=== PATIENT | male | born 1965 | race Caucasian/White ===

== ENCOUNTER 2020-08-09 00:25 | Emergency (ER) | payer OTHER ==
[~2020-08-09 00:25] MED LIST: ATENOLOL50 MG PO; CLARITIN10 M2 PO; COLACE PO; DOXYCYCLINE HY100 MG PO; FISH OIL 1,0001 EACH PO; FLONASE 0.05% N16 GM; HYDROCHLOROTHIA25 MG PO; MULTIVITAMINS1 EAC1 PO; NORCO 7.5-3251 EACH PO
[2020-08-09] MEDS ORDERED: IBUPROFEN600 MG PO (02:43)
[2020-08-09] MEDS ORDERED: GABAPENTIN300 MG PO (02:43)
[2020-08-09] MEDS ORDERED: HYDROCODON-ACE1 EAC4 PO (02:43)
== END 2020-08-09 02:50 | disposition home or self-care (01) ==
LOC: ER1 00:25
DX: B02.9 Zoster without complications (principal); I10 Essential (primary) hypertension
CPT/HCPCS: 99283

== ENCOUNTER 2020-10-30 07:48 | Emergency (ER) | payer OTHER ==
[~2020-10-30 07:48] MED LIST changes: +GABAPENTIN300 MG PO; +HYDROCODON-ACE1 EAC4 PO; +IBUPROFEN600 MG PO
[2020-10-30 13:00] LABS: HEMOGLOBIN 15.3 gm/dl (14.0-17.5); RED BLOOD COUNT 4.68 M/UL (4.20-5.50); WHITE BLOOD COUNT 8.6 K/UL (4.5-11.0)
[2020-10-30 13:23] LABS: BUN/CREATININE RATIO 15 (0-10)
[2020-10-30] MEDS ORDERED: DECADRON6 MG PO (15:20)
[2020-10-30] MEDS ORDERED: MUCINEX DM ER1 EAC1 PO (15:23)
== END 2020-10-30 16:18 | disposition home or self-care (01) ==
LOC: ER1 07:48
PROVIDERS: Physician Assistant
DX: U07.1 COVID-19 (principal); I10 Essential (primary) hypertension
CPT/HCPCS: 36600; 71045; 80053; 82803; 85025; 99283

== ENCOUNTER 2021-10-16 16:24 | Emergency (ER) | payer OTHER ==
[~2021-10-16 16:24] MED LIST changes: +DECADRON6 MG PO; +MUCINEX DM ER1 EAC1 PO
[2021-10-16 17:38] LABS: HEMOGLOBIN 15.9 gm/dl (14.0-17.5); RED BLOOD COUNT 4.98 M/UL (4.20-5.50); WHITE BLOOD COUNT 10.7 K/UL (4.5-11.0)
[2021-10-16 18:00] LABS: BUN/CREATININE RATIO 16 (0-10)
== END 2021-10-16 19:55 | disposition home or self-care (01) ==
LOC: ER1 16:24
PROVIDERS: Nurse Practitioner
DX: R20.0 Anesthesia of skin (principal); I10 Essential (primary) hypertension
CPT/HCPCS: 70450; 71045; 80053; 82550; 82553; 83735; 84100; 84484; 85025; 93005; 99284